=== PATIENT | male | born 1980 | race Caucasian/White ===

== ENCOUNTER 2024-02-10 16:13 | Emergency (ER) | payer BC, SELFPAY ==
--- NOTE | 2024-02-10 17:09 | ED.GENMED ---
History of Present Illness
General
Chief Complaint: Musculo-Skeletal Complaint
Time Seen by Provider: 02/10/24 16:43
Travel History
Have you had any contact with someone who has COVID-19?: No
Do you have any symptoms of coronavirus? Fever > 100 degrees, chills, cough, shortness of breath, sore throat, loss of taste or smell, muscle aches, or headache?: No
History of Present Illness
History of Present Illness:
43-year-old male presents to the emergency department for evaluation of pain and swelling to the left ankle. He states he stepped in a 'dirt hole' and inverted the ankle. He is unable to bear weight. Did not take any medication for pain control
prior to arrival
Review of Systems
Review of Systems
Allergies reviewed?: Yes
All Other Systems: ROS reviewed and negative except as documented in HPI and ROS
Phy Exam
Physical Exam
Physical Exam:
GEN: Well appearing, NAD, WDWN
HEENT: Oral mucosa moist, no scleral icterus
Cardiac: Regular rate
Lung: No respiratory distress, no tachypnea
MSK: Moderate swelling of the left ankle particular laterally, there is focal tenderness to the lateral malleolus. No obvious deformity, dorsalis pedis pulses strong. Left knee and left ankle range of motion are normal however pain is elicited
with left ankle range of motion
Skin: Good color, no pallor or jaundice, no rashes
Neuro: AO x3, moves all extremities freely
Psych: Calm, cooperative
Course
Orders/Labs/Results
Orders:
Orders
02/10/24 16:17
Ankle, left 3 view CR [CR Ankle - Left Min 3 Views ] Urgent
Comment:
Reason For Exam: injury/trauma
02/10/24 17:09
Air Splint Left-Treatment ONCE
Crutches-Treatment ONCE
Vital Signs
Initial and Last Documented VS:
Initial Vital Signs
Temp Pulse Resp Pulse Ox
98.2 F 67 18 97
02/10/24 16:15 02/10/24 16:15 02/10/24 16:15 02/10/24 16:15
Last Documented Vital Signs
Temp Pulse Resp BP Pulse Ox
98.2 F 69 18 156/79 99
02/10/24 16:15 02/10/24 17:27 02/10/24 17:27 02/10/24 17:27 02/10/24 17:27
MDM/Problems Addressed
MDM/Problems Addressed:
X-rays of the left ankle were independently interpreted by me negative for acute osseous abnormality. Discussed supportive care and return parameters, recommend orthopedic follow-up in 2 to 3 weeks if pain is not improving
*Critical Care Note
Total Time (30-74mins, 75-104mins- exclusive of procedures): Not Applicable
ED Attending Note
-
Portions of this chart may have been created with voice recognition software.� Occasional wrong word or��sound alike� substitutions may have occurred due to the inherent limitations of voice recognition software.
Discharge Plan
Departure
Patient Disposition: Home (Routine Discharge)
Date of Disposition: 02/10/24
Time of Disposition: 17:11
Patient with high blood pressure during this ER visit?: No
Discharge Problem:
Moderate left ankle sprain
Instructions: Ankle Sprain ED
Referrals:
Hayde Magdaleno CRNP [Family Provider] -
Drake Dalal DO [Active] -
Interventions
Interventions:
*Risk Screen - Suicide Last Done: 02/10/24 16:15
*General Assessment Last Done: 02/10/24 16:15
*Neglect/Abuse Screening Last Done: 02/10/24 16:15
ED- Fall Risk Assessment Last Done: 02/10/24 17:27
*ED COVID-19 Vaccine History Last Done: 02/10/24 16:15
*Nursing Disposition Last Done: 02/10/24 17:27
ED-Musculoskeletal Assessment Last Done: 02/10/24 17:25
Discharge Date and Time
Discharge Date/Time: 02/10/24 17:28
Print Language: [id number]
[2024-02-10 17:27] VITALS: BP 156/79
== END 2024-02-10 17:28 | disposition home or self-care (01) ==
LOC: EMR 16:13
PROVIDERS: EMERGENCY PHYSICIAN Emergency Medicine; FAMILY PHYSICIAN Nurse Practitioner Family
DX: S93.402A Sprain of unspecified ligament of left ankle, initial encounter (principal); X50.1XXA Overexertion from prolonged static or awkward postures, initial encounter; W17.2XXA Fall into hole, initial encounter
CPT/HCPCS: 99283; 29515; 73610

== ENCOUNTER → 2024-09-29 17:54 | Outpatient (REF) | payer BC, SELFPAY | LOC: MRI 17:54 | PROVIDERS: ATTENDING PHYSICIAN Nurse Practitioner Family; REFERRING PHYSICIAN Chiropractor Sports Physician | DX: M25.572 Pain in left ankle and joints of left foot (principal); G89.29 Other chronic pain | CPT/HCPCS: 73721 ==